=== PATIENT | female | born 1990 | race Caucasian/White ===

== ENCOUNTER 2022-01-15 15:49 | Emergency (ER) | payer MEDICARE, MEDICAID, SELFPAY ==
[2022-01-15 15:55] VITALS: BP 159/94; PULSE 116; RESP 18; TEMP 36.5; O2SAT 100
--- NOTE | 2022-01-15 16:30 | DI.CT_ITS ---
Exam(s) CT ABDOMEN PELVIS W EXAM: CT ABDOMEN PELVIS W CLINICAL HISTORY: LLQ pain, hx of Ulcerative colitis and ovarian cys TECHNIQUE: Imaging Protocol: Axial computed tomography images with coronal and sagittal reformatted images were created and reviewed CONTRAST MATERIAL: Intravenous: Omnipaque 350 Contrast volume:100 mL Oral: No COMPARISON: No exams were available for comparison FINDINGS: ABDOMEN: Lung Bases: Normal where visualized. Liver: Normal density. No measurable mass. Portal, Superior Mesenteric, and Splenic Veins: Unremarkable. Gallbladder and Biliary Tract: No radiodense calculus or dilation. Pancreas: Normal density, no abnormal calcifications or inflammatory process. Spleen: Normal. Adrenals: No masses seen. Kidneys: Normal size, contour and axis. No radiodense stones or obstructive uropathy. No masses seen. Abdominal Aorta: Abdominal portion non-dilated. Bowel: No obstruction or bowel wall thickening. Appendix is unremarkable. Peritoneal Cavity: No ascites, collection or mesenteric inflammatory response. No free air. Lymph Nodes: Within normal limits. Bones: Within normal limits for the patient's age. Soft Tissues: Unremarkable. PELVIS: Bladder: Symmetric distention, no gross wall thickening. Reproductive Organs: There is an IUD in good position. There is a 1.8 x 1.2 cm peripherally enhancin g right ovarian cyst which may represent a corpus luteal cyst. There is a trace amount of free fluid adjacent to the right ovary. Lymph Nodes: Within normal limits. Bones: Within normal limits for the patient's age. IMPRESSION: 1. No acute abdominal or pelvic process. 2. Probable right corpus luteal cyst with a small amount of adjacent fluid which is likely physiologi c. RADIATION DOSE DELIVERED: 1,158.12mGy.cm Total DLP DATA REPOSITORY: All CT scans at this facility are submitted to the National Radiology Data Registry (NRDR) Dose Index Registry (DIR) with the [employer] ([employer]). RADIATION OPTIMIZATION: All CT scans at this facility use at least one of these dose optimization te chniques: automated exposure control; mA and/or kV adjustment per patient size (includes targeted exa ms where dose is matched to clinical indication); or iterative reconstruction.
[2022-01-15] MEDS: Normal Saline 1,000 ML 1000 ML IV (17:10)
[2022-01-15 17:17] LABS: Abs Immature Grans 0.09 10^3/uL (0.0-0.06); Absolute Basophil Count 0.03 10^3/uL (0.0-0.2); Absolute Eosinophil Count 0.05 10^3/uL (0.0-0.7); Absolute Lymphocyte Count 2.28 10^3/uL (1.2-3.4); Absolute Monocyte Count 0.81 10^3/uL (0.1-0.8); Absolute Neutrophil Count 12.26 10^3/uL (1.2-6.7); Basophils % 0.2; Eosinophils % 0.3; HCT 42.9 % (36.0-46.0); Immature Grans % 0.6; Lymphocytes % 14.7; MCH 27.3 pg (27.0-33.0); MCHC 32.6 % (32.0-36.0); MCV 84 fL (80-95); MPV 9.5 fL (8.0-11.0); Monocytes % 5.2; Platelet Count 290 10^3/uL (130-400); RBC 5.12 10^6/uL (3.93-5.22); RDW 13.2 % (11.7-14.6); RDW-SD 39.9 fL; WBC 15.52 10^3/uL (4.4-10.8)
[2022-01-15 17:32] LABS: Bilirubin Negative (Negative); Blood Negative (Negative); Clarity Clear (Clear); Glucose Negative (Negative); Ketones Negative (Negative); Leukocyte Esterase Negative (Negative); Nitrite Negative (Negative); Specific Gravity >= 1.030 (1.005-1.025); Urobilinogen 0.2 EU/dL (Up TO 0.2)
[2022-01-15] MEDS: Omnipaque 350 MG/ML 100 ML BTL IJ (18:01)
[2022-01-15] MEDS: Normal Saline Flush 10 ML SYR IVP (18:03)
[2022-01-15 18:23] LABS: ALT 34 U/L (14-59); AST 14 U/L (15-37); Albumin 3.7 g/dL (3.4-5.0); Alkaline Phosphatase 74 U/L (46-116); Anion Gap 9.1 mmol/L (3-11); BUN 16 mg/dL (7-18); Bilirubin, Total 0.4 mg/dL (0.2-1.0); CO2 26.9 mmol/L (21.0-32.0); CREATININE 0.9 mg/dL (0.55-1.02); Calcium 8.6 mg/dL (8.5-10.1); Chloride 105 mmol/L (98-107); Estimated GFR 86.57 (mL/min/1.73m2); Glucose 116 mg/dL (74-106); Sodium 141 mmol/L (136-145); Total Protein 7.1 g/dL (6.4-8.2)
--- NOTE | 2022-01-15 18:55 | DI.VRAD_ITS ---
PROCEDURE INFORMATION: Exam: CT Abdomen And Pelvis With Contrast Exam date and time: 01/15/2022 6:03 PM Age: 31 years old Clinical indication: Other: Llq pain, HX of ulcerative colitis and ovarian cys TECHNIQUE: Imaging protocol: Computed tomography of the abdomen and pelvis with contrast. Contrast material: OMNIPAQUE 350; Contrast volume: 100 ml; Contrast route: INTRAVENOUS (IV); COMPARISON: No relevant prior studies available. FINDINGS: Lungs: Lung bases clear. Liver: Normal appearing liver. Gallbladder and bile ducts: Normal appearing gallbladder. No calcified gallstones. No biliary dilatation. Pancreas: Normal appearing pancreas. Spleen: Normal appearing spleen. Adrenal glands: Normal appearing adrenal glands. Kidneys and ureters: Normal appearing kidneys. No hydronephrosis. Stomach and bowel: No oral contrast. Stomach partially distended with fluid. No small bowel dilatation to suggest obstruction. Fluid throughout the cecum and ascending colon suggesting diarrhea or impending diarrhea. Normal appearing fecal material in the downstream colon. No evidence of diverticulitis or colitis. Appendix: Normal appendix, partially obscured. Intraperitoneal space: Probable trace pelvic fluid on the right. No free air. Vasculature: Normal caliber abdominal aorta. Lymph nodes: No pathologically enlarged mesenteric, retroperitoneal, or pelvic sidewall lymph nodes. Urinary bladder: Normal appearing urinary bladder. Reproductive: Anteverted uterus, normal in size. T-shaped intrauterine device in situ. Normal-appearing left ovary. Normal-sized right ovary with a 1.8 cm x 1.2 cm peripherally enhancing corpus luteum. Trace adjacent fluid suggested in the right adnexal region. Bones/joints: No acute fracture seen among the bones of the abdomen or pelvis. Soft tissues: Small fat containing ventral hernia at the umbilicus IMPRESSION: 1. 1.8 cm x 1.2 cm peripherally enhancing right ovarian corpus luteum. Suggestion of trace adjacent adnexal fluid. 2. Fluid throughout the cecum and ascending colon suggesting probable diarrhea or impending diarrhea. 3. Normal-sized uterus. Normally positioned T-shaped intrauterine device in situ. Dictated and Authenticated by: Rayshawn Richardson MD. Ordering:ADAM Amos MD
--- NOTE | 2022-01-15 19:00 | ED.GENADUL_ITS ---
Discharge Plan Disposition Patient Disposition: HOME Condition: Stable Discharge Details Clinical Impression: Abdominal pain, Corpus luteum cyst Primary Care Provider: Ruth Ann Ortiz ED Provider: Bette Arshad Home Meds and New Rx's Prescriptions: Continued sulfasalazine 500 mg Tablet 0.5 g PO TID Rx Instructions: give with food (meal/snack) prednisone 1 mg Tablet PO DAILY pantoprazole 40 mg Tablet,Delayed Release (Dr/Ec) 40 mg PO DAILY PRN nifedipine 20 mg Capsule 20 mg PO DAILY Discharge Instructions Instructions: Abdominal Pain (ED) Additional Instructions: Please follow-up with your primary care physician Follow-up for ultrasound I have fractured ovarian cyst of the abdomen. Should you have new or worsening complaints, please return to the emergency department Discharge Data Discharge Date/Time-TO BE ENTERED AT DEPARTURE: 01/15/22 19:24 HPI General Date/Time Provider Initiated Documentation: 01/15/22 16:05 . HPI Narrative: This 31-year-old female presents with report of lower abdominal pain and back pain. She states her symptoms are similar to her prior episode of ovarian cyst rupture. She denies any risk of sexually transmitted disease or known risks of . She has a history of ulcerative colitis and is currently on prednisone and states this does not feel like a flare to her. She has had nausea without vomiting reportedly. Denies any fever or chills. Denies any urinary symptoms. Related Data Home Medications Medication Instructions Recorded Confirmed nifedipine 20 mg capsule 20 mg PO DAILY 01/15/22 01/15/22 pantoprazole 40 mg tablet,delayed 40 mg PO DAILY PRN 01/15/22 01/15/22 release prednisone 1 mg tablet mg PO DAILY 01/15/22 sulfasalazine 500 mg tablet 0.5 g PO TID 01/15/22 01/15/22 Allergies Allergy/AdvReac Type Severity Reaction Status Date / Time mesalamine [From Lialda] Allergy Other (See Unverified 01/15/22 16:28 Comment) General Stated Complaint: Nk/Back Pain CANDACE: 3 Review of Systems All systems reviewed & are unremarkable except as noted in HPI and below PFSH All Active Problems (Updated 01/15/22 @ 19:02 by MODESTA Clemens) Abdominal pain (Acute) Corpus luteum cyst (Acute) Social History Smoking/Tobacco Use Status: Never Smoking risk assessment performed?: Yes Drug use: Never Substance use type: does not use Do you feel safe at home: Yes Do you feel safe in your relationship?: Yes Additional Social history: Boyfriend at bedside Exam Const General: cooperative, comfortable and no acute distress HENMT Mouth: oral mucosae normal Eyes Sclera: sclerae normal Resp Effort & Inspection: normal respiratory effort Auscultation: clear to auscultation bilaterally Cardio Rate: regular rate Rhythm: regular rhythm GI Inspection: normal to inspection Auscultation: normal bowel sounds Other: tenderness to lower quadrants, no rebound or guarding Back/Spine/Pelvis Other: no cva tenderness Skin General skin exam: no rashes or lesions noted Neuro General: patient alert and patient oriented x3 Course Vital Signs Vital signs: Vital Signs Temperature 36.5 C 01/15/22 15:55 Pulse 116 01/15/22 15:55 Respiratory Rate 18 01/15/22 15:55 Blood Pressure 159/94 01/15/22 15:55 Pulse Oximetry 100 01/15/22 15:55 Temperature 36.5 C 01/15/22 15:55 Temperature Source Tympanic 01/15/22 15:55 Pulse 116 01/15/22 15:55 Respiratory Rate 18 01/15/22 15:55 Respiratory Effort Non-Labored 01/15/22 16:22 Blood Pressure 159/94 01/15/22 15:55 Blood Pressure Position Sitting 01/15/22 15:55 Pulse Oximetry 100 01/15/22 15:55 Oxygen Delivery Method Room Air 01/15/22 15:55 Oxygen Flow Rate 0 01/15/22 15:55 Pain Level 3 01/15/22 15:55 Lab/Test Results Lab/Test Results: Laboratory Tests Range/Units 01/15/22 01/15/22 01/15/22 17:05 17:10 17:40 WBC (4.4-10.8) 10^3/uL 15.52 H RBC (3.93-5.22) 10^6/uL 5.12 Hgb (11.2-15.7) g/dL 14.0 Hct (36.0-46.0) % 42.9 MCV (80-95) fL 84 MCH (27.0-33.0) pg 27.3 MCHC (32.0-36.0) % 32.6 RDW (11.7-14.6) % 13.2 Plt Count (130-400) 10^3/uL 290 MPV (8.0-11.0) fL 9.5 Immature Gran % 0.6 Neutrophils % 79.0 Lymphocytes % 14.7 Monocytes % 5.2 Eosinophils % 0.3 Basophils % 0.2 Nucleated RBC % (0.0-0.3) % 0.0 Absolute Neutrophils (1.2-6.7) 10^3/uL 12.26 H Absolute Lymphocytes (1.2-3.4) 10^3/uL 2.28 Absolute Monocytes (0.1-0.8) 10^3/uL 0.81 H Absolute Eosinophils (0.0-0.7) 10^3/uL 0.05 Absolute Basophils (0.0-0.2) 10^3/uL 0.03 Sodium (136-145) mmol/L 141 Potassium (3.5-5.1) mmol/L 4.0 Chloride (98-107) mmol/L 105 Carbon Dioxide (21.0-32.0) mmol/L 26.9 Anion Gap (3-11) mmol/L 9.1 BUN (7-18) mg/dL 16 Creatinine (0.55-1.02) mg/dL 0.9 Est GFR (CKD-EPI 2020) (mL/min/1.73m2) 86.57 Glucose (74-106) mg/dL 116 H Calcium (8.5-10.1) mg/dL 8.6 Total Bilirubin (0.2-1.0) mg/dL 0.4 AST (15-37) U/L 14 L ALT (14-59) U/L 34 Alkaline Phosphatase (46-116) U/L 74 Total Protein (6.4-8.2) g/dL 7.1 Albumin (3.4-5.0) g/dL 3.7 Urine Color (Yellow) Yellow Urine Clarity (Clear) Clear Urine pH (5-8) 6.0 Ur Specific [place] (1.005-1.025) >= 1.030 H Urine Protein (Negative) mg/dL Negative Urine Ketones (Negative) mg/dL Negative Urine Blood (Negative) Negative Urine Nitrite (Negative) Negative Urine Bilirubin (Negative) Negative Urine Urobilinogen (Up TO 0.2) EU/dL 0.2 Ur Leukocyte Esterase (Negative) Negative Urine Glucose (Negative) mg/dL Negative POC- Test(urine) Negative
== END 2022-01-15 19:24 | disposition home or self-care (01) ==
PROVIDERS: Emergency Provider Physician Assistant; PCP Nurse Practitioner Adult Health
DX: N83.10 Corpus luteum cyst of ovary, unspecified side (principal)
CPT/HCPCS: 36415; 80053; 81025; 96361; 96374; 96375; 99285; 74177; 81003; 85025; 99284; J3490

== ENCOUNTER → 2022-01-21 01:03 | Outpatient (CLI) | payer MEDICARE, MEDICAID, SELFPAY ==
--- NOTE | 2022-01-21 10:15 | DI.US_ITS ---
Exam(s) US PELVIS TRANSVAGINAL EXAM: US PELVIS TRANSVAGINAL CLINICAL HISTORY: OVARIAN CYST TECHNIQUE: Ultrasound of the pelvis was performed both transabdominal and transvaginal. COMPARISON: CT CT ABDOMEN PELVIS W from 01/15/2022 FINDINGS: UTERUS: Anteverted and normal size Measures 7 cm length x 4 cm AP x 0.5 cm wide. There are no uterine fibroids. Endometrial thickness measures 4 mm. There is an IUD in satisfactory position in the endometrial canal. No free fluid within the endometr ial canal. CERVIX: Thin fluid line noted in the endocervical canal. RIGHT OVARY: Measures 2.3 x 2.2 x 2.3 cm No significant cysts nor masses evident in the right ovary. LEFT OVARY: Not seen due to overlying bowel gas. CUL-DE-SAC: No free fluid evident. IMPRESSION: 1. IUD is in satisfactory position in the endometrial canal. There is small amount of fluid in the e ndometrial canal. No uterine fibroids. 2. Right ovary unremarkable. Left ovary not seen. 3. No free fluid evident in the cul-de-sac. DATA REPOSITORY:
== END ==
PROVIDERS: PCP Nurse Practitioner Adult Health; Visit Provider Physician Assistant
DX: N83.209 Unspecified ovarian cyst, unspecified side (principal)
CPT/HCPCS: 76830; 76856

== ENCOUNTER 2022-07-08 17:31 | Outpatient (REF) | payer MEDICARE, SELFPAY ==
[2022-07-11 17:37] LABS: Calprotectin 244 mcg/g
== END 2022-07-08 17:32 | disposition home or self-care (01) ==
LOC: LBN 17:31
PROVIDERS: PCP Nurse Practitioner Adult Health; Visit Provider Nurse Practitioner Adult Health
DX: K51.30 Ulcerative (chronic) rectosigmoiditis without complications (principal)
CPT/HCPCS: 83993

== ENCOUNTER 2022-12-23 13:11 | Outpatient (REF) | payer MEDICARE, SELFPAY ==
[2022-12-26 20:18] LABS: Calprotectin 223 mcg/g
== END 2022-12-23 13:12 | disposition home or self-care (01) ==
LOC: LBN 13:11
PROVIDERS: PCP Nurse Practitioner Adult Health; Visit Provider Nurse Practitioner Adult Health
DX: K51.90 Ulcerative colitis, unspecified, without complications (principal); R10.9 Unspecified abdominal pain; R15.9 Full incontinence of feces; K92.1 Melena
CPT/HCPCS: 83993

== ENCOUNTER 2023-06-23 10:22 | Outpatient (REF) | payer BC, MEDICARE, SELFPAY ==
[2023-06-27 15:29] LABS: Calprotectin <50.0 mcg/g
== END 2023-06-23 10:23 | disposition home or self-care (01) ==
LOC: LBN 10:22
PROVIDERS: PCP Nurse Practitioner Adult Health; Visit Provider Nurse Practitioner Adult Health
DX: K51.90 Ulcerative colitis, unspecified, without complications (principal)
CPT/HCPCS: 83993